=== PATIENT | female | born 1950 | race American Indian/Alaskan Native ===

== ENCOUNTER 2017-01-10 10:16 | Outpatient (CLI) | payer MEDICARE ==
--- NOTE | 2017-01-11 10:52 | Mammography Report ---
BILATERAL DIGITAL SCREENING MAMMOGRAM with CAD: 01/10/17 10:16:00 CLINICAL: Routine screening. COMPARISON:12/16/15 and 12/24/15 FINDINGS: The breasts are heterogeneously dense, which may obscure small masses. New asymmetries on the left CC view require additional imaging.No architectural distortion or suspicious calcifications.The right breast is negative. IMPRESSION: Left asymmetries requiring further workup. BI-RADS CATEGORY: 0 -- Additional Imaging Evaluation Required RECOMMENDATION: Recall for left lateralmedial and spot magnification CC views and left breast ultrasound if needed. ACR BI-RADS MAMMOGRAPHIC CODES: 0 = Needs additional imaging evaluation; 1 = Negative; 2 = Benign; 3 = Probably benign; 4 = Suspicious; 5 = Malignant; 6 = Known biopsy-proven malignancy COMMENT: 1. Dense breast tissue, i.e., adenosis, fibrocystic changes, etc., may obscure an underlying neoplasm. 2. Approximately 10% of cancers are not detected with mammography. 3. A negative mammography report should not delay biopsy if a clinically suspicious mass is present. COMMENT: Patient follow-up letters are generated via our [employer] application.
== END 2017-01-10 10:17 | disposition home or self-care (01) ==
LOC: SPVWC 10:16
PROVIDERS: ATTEND Nurse Practitioner
DX: Z12.31 Encounter for screening mammogram for malignant neoplasm of breast (principal)
CPT/HCPCS: 77067; G0202

== ENCOUNTER 2017-01-16 09:19 | Outpatient (CLI) | payer MEDICARE ==
--- NOTE | 2017-01-16 10:25 | Mammography Report ---
LEFT DIGITAL DIAGNOSTIC MAMMOGRAM : 01/16/17 09:19:00 CLINICAL: Recalled for asymmetries. COMPARISON: screening FINDINGS: ML and spot magnification CC views were performed. No persistent asymmetries. IMPRESSION: Negative Mammogram. BI-RADS CATEGORY: 1 -- Negative RECOMMENDATION: Routine mammographic screening in one year. ACR BI-RADS MAMMOGRAPHIC CODES: 0 = Needs additional imaging evaluation; 1 = Negative; 2 = Benign; 3 = Probably benign; 4 = Suspicious; 5 = Malignant; 6 = Known biopsy-proven malignancy COMMENT: 1. Dense breast tissue, i.e., adenosis, fibrocystic changes, etc., may obscure an underlying neoplasm. 2. Approximately 10% of cancers are not detected with mammography. 3. A negative mammography report should not delay biopsy if a clinically suspicious mass is present. COMMENT: Patient follow-up letters are generated via our [employer] application.
== END 2017-01-16 09:20 | disposition home or self-care (01) ==
LOC: SPVWC 09:19
PROVIDERS: ATTEND Nurse Practitioner
DX: R92.8 Other abnormal and inconclusive findings on diagnostic imaging of breast (principal)
CPT/HCPCS: G0206-LT

== ENCOUNTER 2018-01-16 09:47 | Outpatient (CLI) | payer MEDICARE ==
--- NOTE | 2018-01-16 15:39 | Mammography Report ---
BILATERAL DIGITAL SCREENING MAMMOGRAM with CAD: 01/16/18 09:47:00 CLINICAL: Routine screening. COMPARISON:01/16/17 FINDINGS: The breasts are heterogeneously dense, which may obscure small masses. A group of left inner calcifications requires additional imaging.No mass or architectural distortion.The right breast is negative. IMPRESSION: Left calcifications requiring further workup. BI-RADS CATEGORY: 0 -- Additional Imaging Evaluation Required RECOMMENDATION: Recall for left lateralmedial and spot magnification LM and CC views. ACR BI-RADS MAMMOGRAPHIC CODES: 0 = Needs additional imaging evaluation; 1 = Negative; 2 = Benign; 3 = Probably benign; 4 = Suspicious; 5 = Malignant; 6 = Known biopsy-proven malignancy COMMENT: 1. Dense breast tissue, i.e., adenosis, fibrocystic changes, etc., may obscure an underlying neoplasm. 2. Approximately 10% of cancers are not detected with mammography. 3. A negative mammography report should not delay biopsy if a clinically suspicious mass is present. COMMENT: Patient follow-up letters are generated via our [employer] application.
== END 2018-01-16 09:48 | disposition home or self-care (01) ==
LOC: SPVWC 09:47
PROVIDERS: ATTEND Nurse Practitioner
DX: Z12.31 Encounter for screening mammogram for malignant neoplasm of breast (principal)
CPT/HCPCS: 77067

== ENCOUNTER 2018-01-22 11:14 | Outpatient (CLI) | payer MEDICARE ==
--- NOTE | 2018-01-22 11:48 | Mammography Report ---
Left mammogram: Call back. Magnification CC and lateral imaging is performed over a group of calcifications in the superior medial left breast. The additional imaging demonstrates a pleomorphic grouping of microcalcifications it appears to be related to a very faint area of parenchymal soft tissue density. Impression: Indeterminate left calcifications. Recommendation: Stereotactic biopsy. The findings and recommendations have been discussed with the patient. BI-RADS CATEGORY: 4 = Suspicious ACR BI-RADS MAMMOGRAPHIC CODES: 0 = Needs additional imaging evaluation; 1 = Negative; 2 = Benign; 3 = Probably benign; 4 = Suspicious; 5 = Malignant; 6 = Known biopsy-proven malignancy COMMENT: 1. Dense breast tissue, i.e., adenosis, fibrocystic changes, etc., may obscure an underlying neoplasm. 2. Approximately 10% of cancers are not detected with mammography. 3. A negative mammography report should not delay biopsy if a clinically suspicious mass is present.
== END 2018-01-22 11:15 | disposition home or self-care (01) ==
LOC: SPVWC 11:14
PROVIDERS: ATTEND Nurse Practitioner
DX: N64.89 Other specified disorders of breast (principal)

== ENCOUNTER 2018-01-30 10:57 | Outpatient (CLI) | payer MEDICARE ==
--- NOTE | 2018-01-30 13:35 | Mammography Report ---
STEREOTACTIC VACUUM ASSISTED BIOPSY WITH CLIP PLACEMENT LEFT BREAST: 01/30/18 10:57:00 CLINICAL: Left breast calcifications. COMPARISON:01/22/18 FINDINGS: Consent for the procedure was obtained. The group of upper inner calcifications was targeted with stereotactic guidance. The skin was prepped with Betadine and anesthetized with 1% lidocaine. 2% lidocaine with epinephrine was injected for deeper anesthesia. 8 gauge Mammotome biopsy was performed from a CC from above approach through a small dermatotomy. Prefire and post-fire images demonstrated satisfactory positioning of the probe. Samples were obtained around the clock face. A specimen radiograph confirmed satisfactory sampling with removal of life assurance representative calcifications. A Mammostar clip was placed at the biopsy site and deployment was confirmed with a radiograph. The probe was removed and hemostasis was achieved with mild pressure. A sterile dressing was applied. The patient tolerated the procedure well and there were no apparent complications. A 2 view mammogram demonstrated concordant placement of the biopsy clip and removal of the targeted calcifications. IMPRESSION: Uncomplicated stereotactic biopsy with clip placement left breast.
--- NOTE | 2018-01-30 13:37 | Mammography Report ---
LEFT DIGITAL DIAGNOSTIC MAMMOGRAM: 01/30/18 10:57:00 CLINICAL: For clip placement immediately status post stereotactic breast biopsy for calcifications. COMPARISON:01/22/18 FINDINGS: The previously described calcifications have been removed and a localizer clip is identified in the upper inner breast at the site. IMPRESSION: Concordant clip placement status post stereotactic biopsy with removal of calcifications. BI-RADS CATEGORY: 4--Suspicious Pathology pending.
== END 2018-01-30 10:58 | disposition home or self-care (01) ==
LOC: SPVWC 10:57
PROVIDERS: ATTEND Nurse Practitioner
DX: N60.22 Fibroadenosis of left breast (principal); R92.0 Mammographic microcalcification found on diagnostic imaging of breast
CPT/HCPCS: 19081; 77065; 88305; A4648

== ENCOUNTER 2019-01-23 09:48 | Outpatient (CLI) | payer MEDICARE ==
--- NOTE | 2019-01-23 15:17 | Mammography Report ---
BILATERAL DIGITAL SCREENING MAMMOGRAM with CAD : 01/23/19 09:48:00 CLINICAL: Routine screening.Status post left benign stereotactic biopsy of calcifications 01/30/18. The pathology revealed benign breast tissue with fibroadenomatoid changes and associated microcalcifications. COMPARISON:01/16/18 and 01/30/18 mammograms FINDINGS: The breasts are heterogeneously dense, which may obscure small masses.A few left benign calcifications. The previously described left inner calcifications have been removed and there is a biopsy clip at the site. No mass, architectural distortion or suspicious calcifications. IMPRESSION: No mammographic evidence of malignancy. BI-RADS CATEGORY: 2 -- Benign RECOMMENDATION: Routine mammographic screening in one year. COMMENT: Patient follow-up letters are generated by our [employer] application.
== END 2019-01-23 09:49 | disposition home or self-care (01) ==
LOC: SPVWC 09:48
PROVIDERS: ATTEND Internal Medicine
DX: Z12.31 Encounter for screening mammogram for malignant neoplasm of breast (principal)
CPT/HCPCS: 77067

== ENCOUNTER 2021-02-15 10:22 | Outpatient (CLI) | payer MEDICARE ==
--- NOTE | 2021-02-15 12:09 | Mammography Report ---
DIGITAL SCREENING MAMMOGRAM WITH CAD, 02/15/2021 CLINICAL INFORMATION / INDICATION: Routine screening TECHNIQUE: Digital bilateral 2D mammography was obtained in the craniocaudal and mediolateral obliqu e projections. This examination was interpreted with the benefit of Computer-Aided Detection analysis . COMPARISON: 01/23/2019 and prior FINDINGS: Breast Density: There are scattered areas of fibroglandular density. No dominant mass, suspicious calcifications, or architectural distortion in either breast. Left biopsy changes are again noted. Benign-appearing calcifications are again seen. IMPRESSION: No mammographic evidence of malignancy. Follow up recommendation: Routine yearly BI-RADS Category 2: Benign. A "normal" or negative report should not discourage follow up or biopsy of a clinically significant f inding. A written summary of these findings will be mailed to the patient. The patient will be entered into a mammography reporting system which will generate a reminder letter for the patient's next appointmen t at the appropriate interval. The [employer] recommends yearly mammograms starting at age 40 and continuing as l pool as a woman is in good health. Breast MRI is recommended for women with an approximate 20-25% or greater lifetime risk of breast cancer, including women with a strong family history of breast or ova geena cancer or who have been treated for Hodgkin's disease. Signer Name: Iain Rankin MD Signed: 02/15/2021 12:05 PM Workstation Name: [id number]
== END 2021-02-15 10:23 | disposition home or self-care (01) ==
LOC: SPVWC 10:22
PROVIDERS: ATTEND Internal Medicine
DX: Z12.31 Encounter for screening mammogram for malignant neoplasm of breast (principal)
CPT/HCPCS: 77067

== ENCOUNTER 2022-03-01 13:39 | Outpatient (CLI) | payer MEDICARE ==
--- NOTE | 2022-03-03 08:31 | Mammography Report ---
DIGITAL SCREENING MAMMOGRAM WITH CAD, 03/01/2022 CLINICAL INFORMATION / INDICATION: Routine screening mammography. TECHNIQUE: Digital bilateral 2D mammography was obtained in the craniocaudal and mediolateral obliqu e projections. This examination was interpreted with the benefit of Computer-Aided Detection analysis . COMPARISON: 02/15/2021, 01/23/2019, 01/30/2018 FINDINGS: Breast Density: There are scattered areas of fibroglandular density. No dominant mass, suspicious calcifications, or architectural distortion in either breast. There has been no significant interval change. IMPRESSION: No mammographic evidence of malignancy. Follow up recommendation: Routine yearly screening mammogram. BI-RADS Category 1: NEGATIVE A "normal" or negative report should not discourage follow up or biopsy of a clinically significant f inding. A written summary of these findings will be mailed to the patient. The patient will be entered into a mammography reporting system which will generate a reminder letter for the patient's next appointmen t at the appropriate interval. The [employer] recommends yearly mammograms starting at age 40 and continuing as l pool as a woman is in good health. Breast MRI is recommended for women with an approximate 20-25% or greater lifetime risk of breast cancer, including women with a strong family history of breast or ova geena cancer or who have been treated for Hodgkin's disease. Signer Name: Tonya Field MD Signed: 03/03/2022 8:27 AM Workstation Name: [id number]
== END 2022-03-01 13:40 | disposition home or self-care (01) ==
LOC: SPVWC 13:39
PROVIDERS: ATTEND Internal Medicine
DX: Z12.31 Encounter for screening mammogram for malignant neoplasm of breast (principal)
CPT/HCPCS: 77067